=== PATIENT | male | born 1960 | race Caucasian/White ===

== ENCOUNTER 2023-08-25 10:56 | Emergency (ER) | payer OTHER ==
[~2023-08-25] VITALS: Ht 175.3 cm; Wt 113.4 kg
[2023-08-25 10:56] VITALS: BP_SYST 123; PULSE 79; RESP 20; TEMP 97; O2SAT 98
[2023-08-25] MEDS ORDERED: THIAMINE HCL 200 MG/2 ML VIAL IM ONE (11:00)
[2023-08-25] MEDS ORDERED: NACL 0.9% 1,000 ML IV ONE (11:00)
[2023-08-25 11:45] LABS: BARBITURATE, URINE NEGATIVE (NEG <=200); BENZODIAZEPINE, URINE NEGATIVE (NEG <=150); CANNABINOID, URINE NEGATIVE (NEG <=50); COCAINE, URINE NEGATIVE (NEG <=150); METHAMPHETAMINES SCREEN,URINE POSITIVE (NEG <=500); OPIATE, URINE NEGATIVE (NEG <=100); PHENCYCLIDINE SCREEN,URINE NEGATIVE (NEG <=25); URINE AMPHETAMINE NEGATIVE (NEG <=500); URINE METHADONE NEGATIVE (NEG <=200); URINE OXYCODONE SCREEN NEGATIVE (NEG <=100)
[2023-08-25] MEDS ORDERED: LORazepam 2 MG/ML VIAL IVP ONE (11:45)
[2023-08-25 11:46] LABS: UR TRICYCLIC ANTIDEPRESSANTS NEGATIVE (NEG <=300)
[2023-08-25] MEDS: LORazepam 2 MG/ML VIAL IM ONE (12:00)
[2023-08-25 13:28] LABS: CALCIUM 9.9 mg/dL (8.4-11.0); CREATININE 0.7 mg/dL (0.55-1.30); POTASSIUM 4.4 mmol/L (3.5-5.1)
[2023-08-25 13:33] LABS: ALBUMIN 3.5 g/dL (3.4-4.8); BILIRUBIN,DIRECT 0.1 mg/dL (0.0-0.3); TOTAL BILIRUBIN 0.4 mg/dL (0.0-1.0); TOTAL PROTEIN, SERUM 7.2 g/dL (6.4-8.3)
[2023-08-25] MEDS: IBUPROFEN 600 MG TABLET PO ONE (13:53)
[2023-08-25] MEDS: QUEtiapine FUMARATE 100 MG TABLET PO SCH (13:53)
[2023-08-25] MEDS ORDERED: SER100 PO (14:10)
[2023-08-25] MEDS ORDERED: NEU100 PO (14:10)
[2023-08-25] MEDS ORDERED: LOSA-413 PO (14:10)
[2023-08-25] MEDS ORDERED: HYDR25TA4 PO (14:10)
[2023-08-25] MEDS ORDERED: METF-1069 PO (14:10)
[2023-08-25] MEDS ORDERED: ESCI10TA PO (14:10)
[2023-08-25 23:50] VITALS: BP_SYST 177; PULSE 83; RESP 16; TEMP 98.1; O2SAT 96
[2023-08-27] MEDS ORDERED: METF-379 PO (14:14)
== END 2023-08-26 00:30 | disposition home or self-care (01) ==
LOC: SED 10:56
DX: F10.129 Alcohol abuse with intoxication, unspecified (principal); R45.851 Suicidal ideations; Y90.6 Blood alcohol level of 120-199 mg/100 ml; Z88.0 Allergy status to penicillin; Z88.5 Allergy status to narcotic agent; Z79.899 Other long term (current) drug therapy
CPT/HCPCS: 99283; 80307; 80076; 80048; 83690; 36415; 96372; 82948; J2060

== ENCOUNTER 2023-08-26 13:02 | Inpatient (IN) | payer OTHER ==
[~2023-08-26] VITALS: Ht 177.8 cm; Wt 99.8 kg
[~2023-08-26 13:02] MED LIST: ESCI10TA PO; HYDR25TA4 PO; LOSA-413 PO; METF-1069 PO; NEU100 PO; SER100 PO
[2023-08-26 13:06] VITALS: BP_SYST 136; PULSE 96; RESP 20; TEMP 97.4; O2SAT 96
[2023-08-26] MEDS: DIPHENHYDRAMINE INJ 50 MG/ML VIAL IM ONE (13:34)
[2023-08-26] MEDS: LORazepam 2 MG/ML VIAL IM ONE (13:34)
[2023-08-26] MEDS: HALOPERIDOL LACTATE 5 MG/ML VIAL IM ONE (13:35)
[2023-08-26 15:26] LABS: BASOPHILS % (AUTO) 0.7 % (0.0-2.0); EOSINOPHILS # (AUTO) 0.1 K/uL (0.0-0.4); EOSINOPHILS % (AUTO) 2.9 % (0.0-4.0); HEMATOCRIT 24.3 % (36-54); HEMOGLOBIN 7.4 g/dL (14.0-18.0); LYMPHOCYTES % (AUTO) 35.7 % (20.5-51.5); MEAN CORPUSCULAR HEMOGLOBIN 19 pg (27-31); MEAN CORPUSCULAR HGB CONC 31 % (32-36); MEAN CORPUSCULAR VOLUME 62 fL (79.0-98.0); MONOCYTES # (AUTO) 0.3 K/uL (0.0-1.0); MONOCYTES % (AUTO) 10.9 % (1.7-9.3); NEUTROPHILS # (AUTO) 1.4 K/uL (1.8-7.7); RED BLOOD CELL COUNT(AUTO) 3.95 MIL/uL (4.2-6.2); RED CELL DISTRIBUTION WIDTH 20.9 % (9.0-15.0); WHITE BLOOD COUNT (AUTO) 2.8 K/uL (4.8-10.8)
[2023-08-26 15:39] LABS: PLATELET COUNT (AUTO) 38 K/uL (130-430)
[2023-08-26 15:40] LABS: ANISOCYTOSIS 1+; HYPOCHROMASIA 1+; OVALOCYTES FEW
[2023-08-26 16:02] LABS: CALCIUM 8.9 mg/dL (8.4-11.0); CREATININE 0.77 mg/dL (0.55-1.30); POTASSIUM 4.4 mmol/L (3.5-5.1)
[2023-08-26] MEDS ORDERED: FOLIC ACID 1 MG, THIAMINE HCL 100 MG, MAGNESIUM SULFATE 1 GM, MVI 10 ML in NACL 0.9% 1,... IV ONE (16:45)
[2023-08-26 16:56] LABS: BARBITURATE, URINE NEGATIVE (NEG <=200); BENZODIAZEPINE, URINE POSITIVE (NEG <=150); CANNABINOID, URINE NEGATIVE (NEG <=50); COCAINE, URINE NEGATIVE (NEG <=150); METHAMPHETAMINES SCREEN,URINE NEGATIVE (NEG <=500); OPIATE, URINE NEGATIVE (NEG <=100); PHENCYCLIDINE SCREEN,URINE NEGATIVE (NEG <=25); UR TRICYCLIC ANTIDEPRESSANTS NEGATIVE (NEG <=300); URINE AMPHETAMINE NEGATIVE (NEG <=500); URINE METHADONE NEGATIVE (NEG <=200); URINE OXYCODONE SCREEN NEGATIVE (NEG <=100)
[2023-08-26] MEDS ORDERED: HALOPERIDOL LACTATE 5 MG/ML VIAL IM PRN (17:30)
[2023-08-26] MEDS ORDERED: POTASSIUM CHLORIDE 20 MEQ TABLET.ER PO PRN (17:30)
[2023-08-26] MEDS ORDERED: ONDANSETRON HCL 4 MG/2 ML VIAL IVP PRN (17:30)
[2023-08-26] MEDS ORDERED: DOCUSATE SODIUM 100 MG CAPSULE PO PRN (17:30)
[2023-08-26] MEDS ORDERED: MAGNESIUM SULFATE 50 ML IV PRN (17:30)
[2023-08-26] MEDS ORDERED: DEXTROSE 50% JECT 50 ML DISP.SYRIN IVP PRN (17:30)
[2023-08-26] MEDS ORDERED: MUPIROCIN 2% TOPICAL OINTMENT 22 GM NS PRN (17:30)
[2023-08-26] MEDS: FOLIC ACID 1 MG, MVI 10 ML in NACL 0.9% 1,000 ML IV ONE (17:35)
[2023-08-26] MEDS: THIAMINE HCL 100 MG, MAGNESIUM SULFATE 1 GM in NS 100 ML IV ONE (17:35)
[2023-08-26] MEDS ORDERED: ACETAMINOPHEN 500 MG TABLET PO PRN ×2 (17:45)
[2023-08-26 21:14] VITALS: BP_SYST 144; PULSE 104; RESP 20; TEMP 99.2; O2SAT 94
[2023-08-26] MEDS: chlordiazePOXIDE HCL 25 MG CAPSULE PO SCH (21:41)
[2023-08-26] MEDS: GABAPENTIN 100 MG CAPSULE PO SCH (21:41)
[2023-08-26] MEDS: QUEtiapine FUMARATE 100 MG TABLET PO SCH (21:42)
[2023-08-26] MEDS: INSULIN LISPRO SLIDING SCALE 100 UNITS/ML, 3 ML VIAL (humaLOG) SUBCUT PRN (21:48)
[2023-08-27] VITALS (8 sets, daily range): BP systolic 136–150; PULSE 75–99; RESP 18–20; TEMP 97.8–98.6; O2SAT 96–98
[2023-08-27 04:18] LABS: BASOPHILS % (AUTO) 0.9 % (0.0-2.0); EOSINOPHILS # (AUTO) 0.1 K/uL (0.0-0.4); EOSINOPHILS % (AUTO) 3.1 % (0.0-4.0); HEMATOCRIT 24.3 % (36-54); HEMOGLOBIN 7.4 g/dL (14.0-18.0); LYMPHOCYTES # (AUTO) 0.8 K/uL (1.0-5.5); LYMPHOCYTES % (AUTO) 36.8 % (20.5-51.5); MEAN CORPUSCULAR HEMOGLOBIN 19 pg (27-31); MEAN CORPUSCULAR HGB CONC 31 % (32-36); MEAN CORPUSCULAR VOLUME 61 fL (79.0-98.0); MONOCYTES # (AUTO) 0.3 K/uL (0.0-1.0); MONOCYTES % (AUTO) 13.2 % (1.7-9.3); RED BLOOD CELL COUNT(AUTO) 3.96 MIL/uL (4.2-6.2); RED CELL DISTRIBUTION WIDTH 20.6 % (9.0-15.0); WHITE BLOOD COUNT (AUTO) 2.2 K/uL (4.8-10.8)
[2023-08-27 04:57] LABS: PLATELET COUNT (AUTO) 43 K/uL (130-430)
[2023-08-27 05:17] LABS: CALCIUM 9.3 mg/dL (8.4-11.0); CREATININE 0.7 mg/dL (0.55-1.30); POTASSIUM 4.5 mmol/L (3.5-5.1)
[2023-08-27] MEDS ORDERED: ESCITALOPRAM OXALATE 10 MG TABLET PO SCH (09:00)
[2023-08-27] MEDS: LOSARTAN POTASSIUM 25 MG TABLET PO SCH (09:16)
[2023-08-27] MEDS: METOPROLOL SUCCINATE 25 MG TAB.SR.24H (TOPROL XL) PO SCH (09:17)
[2023-08-27] MEDS: CITALOPRAM HYDROBROMIDE 20 MG TABLET PO SCH (09:17)
[2023-08-27] MEDS: ACETAMINOPHEN 500 MG TABLET PO PRN (09:22)
[2023-08-27] MEDS: INSULIN GLARGINE 100 UNITS/ML, 10 ML VIAL SUBCUT SCH (09:25)
[2023-08-27 09:55] LABS: TOTAL IRON BIND. CAPACITY 431 ug/dL (250-450)
[2023-08-27 10:38] LABS: BILIRUBIN,DIRECT 0.2 mg/dL (0.0-0.3); TOTAL BILIRUBIN, NEONATAL 0.8 mg/dL (1.4-8.7)
[2023-08-27 12:38] LABS: NEUTROPHILS % (AUTO) 49.8 % (40.0-70.0)
[2023-08-27] MEDS ORDERED: METF-379 PO (14:14)
[2023-08-27] MEDS: PANTOPRAZOLE SODIUM 40 MG/VIAL (PROTONIX) IVP ONE (16:36)
[2023-08-27] MEDS: SOD FERRIC GLUC COMPLEX/SUC 125 MG in NS 100 ML IV SCH (16:37)
[2023-08-27] MEDS ORDERED: BUDESONIDE/FORMOTEROL 160-4.5 mCg, 6 GM INHALER INH SCH (18:45)
[2023-08-27] MEDS: ALBUTEROL SULFATE 0.083% 2.5 MG/3 ML VIAL.NEB INH SCH (19:40)
[2023-08-27] MEDS: BUDESONIDE 0.5 MG/2 ML AMPUL.NEB INH SCH (19:40)
[2023-08-27] MEDS: ZOLPIDEM TARTRATE 5 MG TABLET PO PRN (21:26)
[2023-08-27] MEDS: METHYLPREDNISOLONE SOD SUCC 40 MG/ML VIAL IVP ONE (21:27)
[2023-08-28] VITALS (8 sets, daily range): BP systolic 106–165; PULSE 77–106; RESP 18–22; TEMP 97–99.1; O2SAT 94–100
[2023-08-28] MEDS: PANTOPRAZOLE SODIUM 40 MG/VIAL (PROTONIX) IVP SCH (08:45)
[2023-08-28] MEDS: INSULIN GLARGINE 100 UNITS/ML, 10 ML VIAL SUBCUT SCH (08:59)
[2023-08-28] MEDS: LORazepam 2 MG/ML VIAL IVP PRN (09:04)
[2023-08-28] MEDS: NICOTINE 14 MG/24 HR PATCH.TD24 TD SCH (10:25)
[2023-08-28 10:52] LABS: BASOPHILS % (AUTO) 0.7 % (0.0-2.0); EOSINOPHILS % (AUTO) 0.2 % (0.0-4.0); HEMATOCRIT 26.5 % (36-54); HEMOGLOBIN 8.2 g/dL (14.0-18.0); LYMPHOCYTES # (AUTO) 0.5 K/uL (1.0-5.5); LYMPHOCYTES % (AUTO) 11.5 % (20.5-51.5); MEAN CORPUSCULAR HEMOGLOBIN 19 pg (27-31); MEAN CORPUSCULAR HGB CONC 31 % (32-36); MEAN CORPUSCULAR VOLUME 62 fL (79.0-98.0); MONOCYTES # (AUTO) 0.3 K/uL (0.0-1.0); MONOCYTES % (AUTO) 7.6 % (1.7-9.3); NEUTROPHILS # (AUTO) 3.5 K/uL (1.8-7.7); RED CELL DISTRIBUTION WIDTH 20.7 % (9.0-15.0); WHITE BLOOD COUNT (AUTO) 4.4 K/uL (4.8-10.8)
[2023-08-28 11:12] LABS: CALCIUM 10.7 mg/dL (8.4-11.0); CREATININE 0.91 mg/dL (0.55-1.30)
[2023-08-28 11:46] LABS: PLATELET COUNT (AUTO) 43 K/uL (130-430)
[2023-08-28] MEDS: predniSONE 20 MG TABLET PO ONE (11:54)
[2023-08-28] MEDS: FERROUS SULFATE 325 MG TABLET.DR PO SCH (14:59)
[2023-08-28] MEDS ORDERED: ACETAMINOPHEN 325 MG TABLET PO PRN ×2 (15:30)
[2023-08-28] MEDS ORDERED: HYDROcodone/ACETAMIN 5-325 MG TAB (NORCO/ VICODIN) PO PRN (15:30)
[2023-08-28] MEDS: HYDROcodone/ACETAMIN 10-325 MG TAB PO PRN (15:45)
[2023-08-28] MEDS: IRON DEXTRAN COMPLEX 25 MG in NS 50 ML IV ONE (16:15)
[2023-08-28] MEDS: IRON DEXTRAN COMPLEX 75 MG in NS 100 ML IV ONE (17:27)
[2023-08-28] MEDS: PANTOPRAZOLE SODIUM 40 MG TAB PO SCH (20:46)
[2023-08-29 00:15] VITALS: BP_SYST 151; PULSE 104; RESP 18; TEMP 97.2; O2SAT 96
[2023-08-29] MEDS: INSULIN GLARGINE 100 UNITS/ML, 10 ML VIAL SUBCUT ONE ×2 (00:33→10:47)
[2023-08-29 05:35] LABS: BASOPHILS % (AUTO) 0.2 % (0.0-2.0); EOSINOPHILS % (AUTO) 0.1 % (0.0-4.0); HEMATOCRIT 26.5 % (36-54); HEMOGLOBIN 8.1 g/dL (14.0-18.0); LYMPHOCYTES # (AUTO) 0.6 K/uL (1.0-5.5); LYMPHOCYTES % (AUTO) 14.5 % (20.5-51.5); MEAN CORPUSCULAR HEMOGLOBIN 19 pg (27-31); MEAN CORPUSCULAR HGB CONC 31 % (32-36); MEAN CORPUSCULAR VOLUME 62 fL (79.0-98.0); MONOCYTES # (AUTO) 0.4 K/uL (0.0-1.0); MONOCYTES % (AUTO) 10.2 % (1.7-9.3); NEUTROPHILS # (AUTO) 3.3 K/uL (1.8-7.7); RED BLOOD CELL COUNT(AUTO) 4.27 MIL/uL (4.2-6.2); RED CELL DISTRIBUTION WIDTH 20.9 % (9.0-15.0); WHITE BLOOD COUNT (AUTO) 4.4 K/uL (4.8-10.8)
[2023-08-29 06:02] LABS: CALCIUM 10.7 mg/dL (8.4-11.0); CREATININE 0.84 mg/dL (0.55-1.30)
[2023-08-29 06:55] LABS: PLATELET COUNT (AUTO) 32 K/uL (130-430)
[2023-08-29 07:52] VITALS: BP_SYST 138; PULSE 91; RESP 18; TEMP 97.5; O2SAT 97
[2023-08-29] MEDS ORDERED: predniSONE 20 MG TABLET PO SCH (09:00)
[2023-08-29] MEDS ORDERED: INSULIN GLARGINE 100 UNITS/ML, 10 ML VIAL SUBCUT SCH ×2 (09:00→21:00)
[2023-08-29] MEDS: FOLIC ACID 1 MG TABLET PO SCH (10:02)
[2023-08-29] MEDS: THIAMINE HCL 100 MG TABLET PO SCH (10:04)
[2023-08-29 10:21] VITALS: O2SAT 96
[2023-08-29] MEDS: IRON DEXTRAN COMPLEX 100 MG in NS 100 ML IV SCH (10:26)
[2023-08-29] MEDS: LORazepam 2 MG/ML VIAL IM PRN (12:01)
[2023-08-29 12:06] VITALS: BP_SYST 124; PULSE 88; RESP 20; TEMP 98.3; O2SAT 96
[2023-08-29] MEDS: IPRATROPIUM/ALBUTEROL SULFATE 3 ML AMPUL.NEB (DUONEB) INH PRN (13:44)
[2023-08-29 13:45] VITALS: O2SAT 96
[2023-08-29 15:08] VITALS: BP_SYST 133; PULSE 87; RESP 18; TEMP 97.6; O2SAT 96
[2023-08-29] MEDS ORDERED: FERR-69 PO (15:08)
[2023-08-29] MEDS ORDERED: INSU100I26 SQ (15:08)
[2023-08-29] MEDS ORDERED: OMEP20CA15 PO (15:08)
[2023-08-29] MEDS ORDERED: [UNRECOGNIZED DRUG - CODE] MC (15:08)
== END 2023-08-29 15:25 | disposition home or self-care (01) | DRG 663 ==
LOC: SED 13:02 → SMU 17:57
PROVIDERS: ADMIT General Practice; ATTEND General Practice
DX: D50.9 Iron deficiency anemia, unspecified (principal); D61.818 Other pancytopenia; R45.851 Suicidal ideations; E11.65 Type 2 diabetes mellitus with hyperglycemia; B19.20 Unspecified viral hepatitis C without hepatic coma; D73.1 Hypersplenism; F10.129 Alcohol abuse with intoxication, unspecified; K74.60 Unspecified cirrhosis of liver; F15.10 Other stimulant abuse, uncomplicated; J44.9 Chronic obstructive pulmonary disease, unspecified; F32.9 Major depressive disorder, single episode, unspecified; Y90.9 Presence of alcohol in blood, level not specified; F10.139 Alcohol abuse with withdrawal, unspecified; Z59.00 Homelessness unspecified; Z79.899 Other long term (current) drug therapy; Z91.148 Patient's other noncompliance with medication regimen for other reason; Z88.5 Allergy status to narcotic agent; Z88.0 Allergy status to penicillin
CPT/HCPCS: 36415; 76700; 80048; 80307; 82105; 82247; 82248; 82948; 83037; 83540; 83550; 83615; 83735; 85025; 85044; 94640; 94760; 99285; C9113; G0482; J1030; J1200; J1630; J1750; J1815; J2060; J2916; J3411; J3475; J3490; J7030; J7512; J7626